=== PATIENT | female | born 1960 | race Caucasian/White ===

== ENCOUNTER → 2019-02-17 | Day surgery (SDC) | payer OTHER ==
[2019-02-15 13:48] LABS: BASOPHILS % 0.6 % (0.0-1.0); EOSINOPHILS # (AUTO) 0.1 (0.0-0.4); HEMATOCRIT 42.5 % (34.2-44.1); LYMPHOCYTES # (AUTO) 2.1 (1.0-3.2); LYMPHOCYTES % 29.6 % (18.0-39.1); MEAN CORPUSCULAR HEMOGLOBIN 28.5 pg (28-32); MEAN CORPUSCULAR HGB CONC 32.9 g/dL (31-35); MEAN CORPUSCULAR VOLUME 86.4 fL (81-99); MONOCYTES # (AUTO) 0.5 (0.2-0.8); MONOCYTES % 7.1 % (4.4-11.3); NEUTROPHILS # (AUTO) 4.2 (2.1-6.9); NEUTROPHILS % 60.6 % (38.7-80.0); PLATELET COUNT 208 x10e3/uL (140-360); RED BLOOD COUNT 4.92 x10e6/uL (3.6-5.1); RED CELL DISTRIBUTION WIDTH 13.7 % (11.7-14.4)
[2019-02-15 14:02] LABS: ANION GAP 15.2 mmol/L (8-16); BLOOD UREA NITROGEN 17 mg/dL (7-26); BUN/CREATININE RATIO 18 (6-25); CARBON DIOXIDE 28 mmol/L (22-29); CHLORIDE 103 mmol/L (98-107); CREATININE, SERUM 0.93 mg/dL (0.57-1.11); EST GLOMERULAR FILTRATION RATE > 60 ML/MIN (60-); GLUCOSE 88 mg/dL (74-118); POTASSIUM 4.2 mmol/L (3.5-5.1); SODIUM 142 mmol/L (136-145)
--- NOTE | 2019-02-15 14:17 | Diagnostic Imaging Report ---
EXAMINATION: CHEST 2 VIEWS INDICATION: Pre-operative COMPARISON: None FINDINGS: LINES/TUBES:None LUNGS:The lungs are well-inflated. No focal consolidation or pulmonary edema. PLEURA:No pleural effusion or pneumothorax. MEDIASTINUM:The cardiomediastinal silhouette appears normal in size and shape. BONES/SOFT TISSUES:No acute osseous injury. Cervical spine fusion hardware. ABDOMEN:No free air under the diaphragm. IMPRESSION: No focal pneumonia or pulmonary edema. Signed by: Gian Alexander MD on 02/15/2019 2:13 PM
[~2019-02-17] MED LIST: ACETAMINOPHEN 1000 MG/100 ML IV ONE; BUPIVACAINE HCL 0.5% INJ 30 ML VIAL INJ ONE; CEFAZOLIN SOD 1 GM/NS 50ML 100 ML IV ONE; DEXAMETHASONE SOD PHOS INJ 4 MG/ML VIAL ONE; FENTANYL CITRATE/PF 100MCG/2 ML INJ ONE; KETOROLAC TROMETHAMINE 30 MG/ML VIAL ONE; LIDOCAINE HCL 2% LOCAL INJ 5 ML SDV VIAL INJ ONE; MIDAZOLAM HCL 2 MG/2 ML VIAL ONE; MORPHINE SULFATE INJ 4 MG/ML INJ 1ML ONE; NEOSTIGMINE 1 MG/ML 10ML VIAL ONE; ONDANSETRON HCL INJ 2MG/ML 2ML 2 MG/ML VIAL ONE; PROPOFOL IV EMULSION 10 MG/ML 20 ML VIAL ONE; SEVOFLURANE INHAL SOLN 250 ML PEN BTL ONE
--- OUTSIDE RECORDS SUMMARY | 2019-02-17 08:53 | XMS REPORT | Clinical Summary ---
Author Author [facility] [employer] [facility] [employer] Address Unknown Phone Unavailable Care Team Providers Care Color Coater Name Role Phone Ioana Singletary MD PCP Allergies No Known Allergies Medications End Date Status Medication Sig Dispensed Refills Start Date Active fluticasone/salmeterol Inhale 1 puff 0 (ADVAIR DISKUS INHL) 2 (two) times a day. Active albuterol (PROAIR Inhale 2 0 HFA,PROVENTIL puffs every 6 HFA,VENTOLIN HFA) 90 (six) hours mcg/actuation inhaler as needed for wheezing. Active acetaminophen (TYLENOL) Take 650 mg 0 325 MG tablet by mouth every 6 (six) hours as needed for mild pain or moderate pain. Active amitriptyline HCl Take 1 tablet 0 (AMITRIPTYLINE ORAL) by mouth nightly. Active Problems Not on file Encounters Care Team Description Date Type Specialty Ori Abernathy MD Radiculopathy, cervical (Primary Dx) 05/04/2018 Transcribe Radiology Orders Ori Abernathy MD ANTERIOR CERVICAL DISCECTOMY AND FUSION W/ ALLOGRAFT, AUTOGRAFT CERVICAL 6 - CERVICAL 7 03/24/2018 Surgery General Surgery Jose M Muro MD Delaflor-Santaana, Miriam, NP 03/24/2018 Anesthesia General Surgery Event Ori Abernathy MD Degeneration of intervertebral disc at C6-C7 level; Herniation of intervertebral disc at C6-C7 level; Cervical spinal stenosis; Acute cervical radiculopathy 03/24/2018 Hospital General Surgery Encounter Ori Abernathy MD Pre-op testing (Primary Dx) 03/17/2018 Pre-Admit Pre-Admission Testing Testing Appointment after 02/16/2018 Social History Date Tobacco Use Types Packs/Day Years Used Never Smoker Smokeless Tobacco: Never Used Tobacco Cessation: Counseling Given: No Drinks/Week oz/Week Comments Alcohol Use occas social Yes Sex Assigned at Date Recorded Not on file Industry Job Start Date Occupation Not on file Not on file Not on file Travel End Travel History Travel Start No recent travel history available. Last Filed Vital Signs Reading Time Taken Comments Vital Sign 118/55 03/24/2018 10:01 AM CDT Blood Pressure 67 03/24/2018 10:01 AM CDT Pulse 36.2 C (97.2 F) 03/24/2018 10:01 AM CDT Temperature 15 03/24/2018 10:01 AM CDT Respiratory Rate 99% 03/24/2018 10:01 AM CDT Oxygen Saturation - - Inhaled Oxygen Concentration 108 kg (238 lb 3.2 oz) 03/24/2018 5:34 AM CDT Weight 165.1 cm (5' 5") 03/24/2018 5:34 AM CDT Height 39.64 03/24/2018 5:34 AM CDT Body Mass Index Plan of Treatment Health Maintenance Due Date Last Done Comments CERVICAL CANCER SCREENING 1983 BREAST CANCER SCREENING 2012 COLONOSCOPY SCREENING 2012 SHINGLES VACCINES (#1) 2012 INFLUENZA VACCINE 12/22/2018 03/17/2018 Implants Device Identifier Shelf Expiration Date Model / Serial / Lot Implanted Type Area Manufactur er 07/25/2022 [id number] / [id number] / LOT NA Bone Matriz Osteocel Pro Small - Human N/A: N/A NUVASIVE [id number] - [id number] Tissue Implanted: Qty: 1 on 03/24/2018 by Implants Ori Abernathy MD at [facility] 04/03/2022 [id number] / / Triad Cr Allograft [id number] - IPM Anterior: Spine NUVASIVE [id number] IMPLANT Cervical SPINE Implanted: Qty: 1 on 03/24/2018 by DEVICES Ori Abernathy MD at [facility] [id number] / / Plate Spinal Revltn 1lvl 20mm [place] Spinal N/A: N/A NUVASIVE Acp - [id number] Implants Implanted: Qty: 1 on 03/24/2018 by Ori Abernathy MD at [facility] [id number] / / Screw Spinal Favio Slf-Tap 4x13mm Spinal N/A: N/A NUVASIVE [place] Revolution Acp - [id number] Implants Implanted: Qty: 2 on 03/24/2018 by Ori Abernathy MD at [facility] [id number] / / Screw Spinal Fxd Slf-Tap 4x13mm Spinal N/A: N/A NUVASIVE [place] Revolution Acp - [id number] Implants Implanted: Qty: 2 on 03/24/2018 by Ori Abernathy MD at [facility] Device Identifier Shelf Expiration Date Model / Serial / Lot Explanted Type Area Manufactur er [id number] / / Distraction Pin- 12mm - [id number] IPM N/A: N/A NUVASIVE Implanted: 03/24/2018 (Quantity not IMPLANT SPINE on file) DEVICES Explanted: Qty: 2 on 03/24/2018 at [facility] Procedures Comments Procedure Name Priority Date/Time Associated Diagnosis XR CERVICAL SPINE AP Routine 05/04/2018 Radiculopathy, cervical LATERAL FLEXION AND 4:06 PM TIPPLE SUPERVISOR EXTENSION SURGICAL PATHOLOGY Routine 03/24/2018 REQUEST 1:24 PM CDT [place] AN ELECTIVE Routine 03/24/2018 ENDOTRACHEAL AIRWAY 9:44 AM CDT Procedure Note - Jose M Muro - 03/24/2018 9:44 AM CDT Airway Date/Time: 03/24/2018 7:11 AM Performed by: JOSE M MURO Authorized by: JOSE M MURO Location: OR Urgency: Elective Difficult Airway: No Anesthesio logist: JOSE M MURO Preoxygena belkis with 100% O2: Yes C-spine Precaution s Maintained Throughout : Yes Mask Ventilatio n: Easy mask Final Airway Type: Endotrache al airway Final Endotrache al Airway: ETT Cuffed: Yes Technique Used: Video laryngosco py Devices/Me thods Used in Placement: Intubatin g stylet Insertion Site: Oral Laryngosco pe Blade/Vide olaryngosc ope Blade Size: 3 (Glidescop e 3 ) ETT Size (mm): 7.0 Cuff at minimum occlusion pressure: Yes Measured from: Lips ETT to Lips (cm): 21 Placement Verified by: CO2 detection and direct visualizat ion Laryngosco pic view: Grade I - full view of glottis Rapid Sequence Induction (RSI): No Modified RSI: No Number of Attempts at Approach: 1 Elective glidescope use 2/2 cervical neck pain, limited range of motion of neck and radiculopa thy OR [place] < 1 HOUR Routine 03/24/2018 8:20 AM CDT DISCECTOMY, CERVICAL, 03/24/2018 Degeneration of WITH FUSION, ANTERIOR 7:02 AM CDT intervertebral disc at APPROACH C6-C7 level Herniation of intervertebral disc at C6-C7 level Cervical spinal stenosis Acute cervical radiculopathy Case Notes SUPINE POSITION, EST 1 HR, REGULAR BED-REVERS ED, C-ARM, DOUGHNUT HEADREST, HELIX-R ANTERIOR PLATE, PEEK SMALL CONTOURED, OSTEOCEL, POSSIBLE EXTENDED STAY Special Needs SUPINE POSITION, EST 1 HR, REGULAR BED-REVERS ED, C-ARM, DOUGHNUT HEADREST, HELIX-R ANTERIOR PLATE, PEEK SMALL CONTOURED, OSTEOCEL, POSSIBLE EXTENDED STAY ECG PRE/POST OP Routine 03/17/2018 Pre-op testing 12:09 PM CDT ESTIMATED GFR Routine 03/17/2018 11:59 AM CDT HEMOGLOBIN A1C Routine 03/17/2018 Pre-op testing 11:59 AM CDT BASIC METABOLIC PANEL Routine 03/17/2018 Pre-op testing 11:59 AM CDT HC COMPLETE BLD COUNT Routine 03/17/2018 Pre-op testing W/AUTO DIFF 11:59 AM CDT after 02/16/2018 Results * XR Cervical Spine Ap Lateral Flexion And Extension (05/04/2018 4:06 PM TIPPLE SUPERVISOR) Specimen Narrative Performed At EXAMINATION:XR CERVICAL SPINE AP LATERAL FLEXION AND EXTENSION HM RADIANT CLINICAL HISTORY:M54.12 Radiculopathycervical region, radiculopathy cervical COMPARISON:None. IMPRESSION: 5 views of the cervical spine were obtained. C6-7 anterior fusion with vertebral screws, surgical plate and disc graft without evidence of hardware loosening. Mild induced anterolisthesis at C3-4 and C4-5. Mild anterolisthesis at C5-6 stable on extension and flexion. No displaced fractures, aggressive bone lesions or prevertebral soft tissue swelling. Mild disc space narrowing and endplate degenerative changes at C4-5 and C5-6. [id number] Procedure Note Interface, Radiology Results Incoming - 05/04/2018 4:51 PM TIPPLE SUPERVISOR EXAMINATION: XR CERVICAL SPINE AP LATERAL FLEXION AND EXTENSION CLINICAL HISTORY: M54.12 Radiculopathy cervical region, radiculopathy cervical COMPARISON: None. IMPRESSION: 5 views of the cervical spine were obtained. C6-7 anterior fusion with vertebral screws, surgical plate and disc graft without evidence of hardware loosening. Mild induced anterolisthesis at C3-4 and C4-5. Mild anterolisthesis at C5-6 stable on extension and flexion. No displaced fractures, aggressive bone lesions or prevertebral soft tissue swelling. Mild disc space narrowing and endplate degenerative changes at C4-5 and C5-6. [id number] Performing Organization Address City/[facility]/[place] [address] * Surgical pathology request (03/24/2018 1:24 PM CDT) [facility] OF PATHOLOGY AND GENOMIC MEDICINE Surgical See link below for PDF Lab [facility] pathology Report OF PATHOLOGY report AND GENOMIC MEDICINE Result status This is Final Report for [facility] [id number] OF PATHOLOGY AND GENOMIC MEDICINE Specimen Performing Organization Address City/[facility] Phone Number [facility] DEPART[facility] OF [address] [place] [address] PATHOLOGY AND GENOMIC MEDICINE * OR [place] < 1 Hour (03/24/2018 8:20 AM CDT) Specimen Narrative Performed At IMPRESSION: C-arm fluoroscopy under one hour was provided in the OR for the [facility] referring physician. A radiologist was not present during the procedure. Refer to the Operative report issued by the performing provider for procedure details. Location: [facility] OR 11 Procedure: ANT CER FUSION Start: 729 End: 819 Fluoro Time: 1SEC mGy: 0.15 Tech: ALEX [id number] Procedure Note Interface, Radiology Results Incoming - 03/24/2018 1:22 PM CDT IMPRESSION: C-arm fluoroscopy under one hour was provided in the OR for the referring physician. A radiologist was not present during the procedure. Refer to the Operative report issued by the performing provider for procedure details. Location: [facility] OR 11 Procedure: ANT CER FUSION Start: 729 End: 819 Fluoro Time: 1SEC mGy: 0.15 Tech: ALEX [id number] Performing Organization Address [facility] Phone Number [facility] [address] [place] [address] * ECG Pre/Post Op (03/17/2018 12:09 PM CDT) [facility] Ventricular 69 [facility] MUSE rate Atrial rate 69 [facility] MUSE [place] interval 198 [facility] MUSE QRSD interval 78 [facility] MUSE QT interval 416 [facility] MUSE QTC interval 445 [facility] MUSE P axis 1 8 [facility] QRS axis 1 9 [facility] M[facility] T wave axis 29 [facility] EKG impression Normal sinus rhythm-Normal [facility] M[facility] ECG-No previous ECGs available- Specimen Performing Organization Address [facility] Phone Number [facility] [address] [place] [address] * Estimated GFR (03/17/2018 11:59 AM CDT) [facility] Estimated GFR >=90 mL/min/1.73 m2 [facility] Comment: OF PATHOLOGY CatergoryUnitsInte AND GENOMIC rpretation MEDICINE G1 >=90 Normal or high G2 60-89Mildly decreased D6l80-71 Mildly to moderately decreased L4z36-22 Moderately to severely decreased G4 15-29Severely decreased G5 <15Kidney failure The eGFR was calculated using the Chronic Kidney Disease Epidemiology Collaboration (CKD-EPI) equation. Interpretation is based on recommendations of the National Kidney Foundation-Kidney Disease Outcomes Quality Initiative (NKF-KDOQI) published in 2014. Specimen Plasma specimen Performing Organization Address [facility] Phone Number [address] [address] PATHOLOGY AND GENOMIC MEDICINE * CBC with platelet and differential (03/17/2018 11:59 AM CDT) [facility] WBC 6.91 4.50 - 11.00 k/uL [facility] DEPARTMENT OF PATHOLOGY AND GENOMIC MEDICINE RBC 4.62 4.20 - 5.50 m/uL [facility] DEPART[facility] OF PATHOLOGY AND GENOMIC MEDICINE HGB 13.8 12.0 - 16.0 g/dL [facility] DE[facility] OF PATHOLOGY AND GENOMIC MEDICINE HCT 42.3 37.0 - 47.0 % [facility] DEPART[facility] OF PATHOLOGY AND GENOMIC MEDICINE MCV 91.6 82.0 - 100.0 fL [facility] DEPART[facility] OF PATHOLOGY AND GENOMIC MEDICINE MCH 29.9 27.0 - 34.0 pg [facility] DEPART[facility] OF PATHOLOGY AND GENOMIC MEDICINE MCHC 32.6 31.0 - 37.0 g/dL [facility] DEPART[facility] OF PATHOLOGY AND GENOMIC MEDICINE RDW - SD 43.8 37.0 - 55.0 fL [facility] DEPARTMENT OF PATHOLOGY AND GENOMIC MEDICINE MPV 11.2 8.8 - 13.2 fL [facility] DE[facility] OF PATHOLOGY AND GENOMIC MEDICINE Platelet count 194 150 - 400 k/uL [facility] OF PATHOLOGY AND GENOMIC MEDICINE Nucleated RBC 0.00 /100 WBC [facility] DEPART[facility] OF PATHOLOGY AND GENOMIC MEDICINE Neutrophils 64.1 39.0 - 69.0 % [facility] DE[facility] OF PATHOLOGY AND GENOMIC MEDICINE Lymphocytes 26.6 25.0 - 45.0 % [facility] DE[facility] OF PATHOLOGY AND GENOMIC MEDICINE Monocytes 6.2 0.0 - 10.0 % [facility] OF PATHOLOGY AND GENOMIC MEDICINE Eosinophils 2.3 0.0 - 5.0 % [facility] DE[facility] OF PATHOLOGY AND GENOMIC MEDICINE Basophils 0.4 0.0 - 1.0 % [facility] OF PATHOLOGY AND GENOMIC MEDICINE Immature 0.4Comment: "Immature 0.0 - 1.0 % [facility] granulocytes granulocytes" (promyelocytes, OF PATHOLOGY myelocytes, metamyelocytes) AND GENOMIC MEDICINE Specimen Blood Performing Organization Address City/State/[place] [address] PATHOLOGY AND GENOMIC MEDICINE * Hemoglobin A1c (03/17/2018 11:59 AM CDT) Hemoglobin A1C 5.4 4.0 - 5.6 % [facility] Comment: OF PATHOLOGY HbA1c cutoffs for diagnosing AND GENOMIC diabetes: MEDICINE 4.0% - 5.6%=normal 5.7% - 6.4%=increased risk for diabetes (prediabetes) >=6.5%=diabetes Goals for glycemic control (ADA 2016) < 7.0%Target for non adults with diabetes. More or less stringent targets may be appropriate for individual patients. <7.5% Target for Children and adolescents with type 1 diabetes. Specimen Blood Performing Organization Address City/State/Zipcode Phone Number [facility] [place] [address] PATHOLOGY AND GENOMIC MEDICINE * Basic metabolic panel (03/17/2018 11:59 AM CDT) Sodium 141 135 - 148 mEq/L [facility] DEPART[facility] OF PATHOLOGY AND GENOMIC MEDICINE Potassium 3.8 3.5 - 5.0 mEq/L [facility] DE[facility] OF PATHOLOGY AND GENOMIC MEDICINE Chloride 101 98 - 112 mEq/L [facility] DE[facility] OF PATHOLOGY AND GENOMIC MEDICINE CO2 28 24 - 31 mEq/L [facility] DEPARTMENT OF PATHOLOGY AND GENOMIC MEDICINE Anion gap 12@ANIO 7 - 15 mEq/L [facility] DEPARTMENT OF PATHOLOGY AND GENOMIC MEDICINE BUN 19 6 - 20 mg/dL [facility] DE[facility] OF PATHOLOGY AND GENOMIC MEDICINE Creatinine 0.72 0.50 - 0.90 mg/dL [facility] DE[facility] OF PATHOLOGY AND GENOMIC MEDICINE Glucose 102 (H) 65 - 99 mg/dL [facility] DEPARTMENT OF PATHOLOGY AND GENOMIC MEDICINE Calcium 9.9 8.3 - 10.2 mg/dL [facility] DEPART[facility] OF PATHOLOGY AND GENOMIC MEDICINE Specimen Plasma specimen Performing Organization Address City/State/Zipcode Phone Number [place] [phone] PATHOLOGY AND GENOMIC MEDICINE after 02/16/2018 Insurance Type Payer Benefit Subscriber ID Effective Phone Address Plan / Dates Group PPO AETNA AETNA PPO xxxxxxxxxx [id number] OPEN resent CHOICE ([place]) [place] [address] Advance Directives For more information, please contact: [phone] Patient Crank Hand Explanation Type Date Recorded Advance Directives, Living Will and Medical Power of Forming Operator Advance Directives, 03/27/2018 12:46 PM Living Will and Medical Power of Forming Operator
--- OUTSIDE RECORDS SUMMARY | 2019-02-17 08:53 | XMS REPORT ---
Author Author [facility] Address Unknown Phone Unavailable Care Team Providers Care Eligibility Clerk Name Role Phone EMERSON MOREL Unavailable Unavailable Payers Payer Name Policy Type Policy Number Effective Date Expiration Date Problems This patient has no known problems. Allergies, Adverse Reactions, Alerts Allergy Name Allergy Type Status Severity Reaction(s) Onset Date Inactive Date Treating Clinician Comments No Known Drug Allergies DA Active U 2018-09-15 00:00:00 No Known Drug Allergies DA Active U 2018-07-29 00:00:00 No Known Drug Allergies DA Active U 2015-12-03 00:00:00 Medications This patient has no known medications. Results Test Description Test Time Test Comments Text Results Atomic Results Result Comments CHEST 2 VIEWS 2019-02-15 14:13:00 [facility] [address] [place] [address] Patient Name: SUDHA AL MR #: [id number] : 1960 Age/Sex: 58/F Req #: [id number] Adm Physician: Ordered by: EMERSON MOREL DPM Report #: [id number] Location: OR Room/Bed: Procedure: [id number] DX/CHEST 2 VIEWS Exam Date: 02/15/19 Exam Time: 1324 REPORT STATUS: Signed EXAMINATION: CHEST 2 VIEWS INDICATION: Pre-operative COMPARISON: None FINDINGS: LINES/TUBES:None LUNGS:The lungs are well-inflated. No focal consolidation or pulmonary edema. PLEURA:No pleural effusion or pneumothorax. MEDIASTINUM:The cardiomediastinal silhouette appears normal in size and shape. BONES/SOFT TISSUES:No acute osseous injury. Cervical spine fusion hardware. ABDOMEN:No free air under the diaphragm. IMPRESSION: No focal pneumonia or pulmonary edema. Signed by: Lázaro De La Garza MD on 02/15/2019 2:13 PM Dictated By: LÁZARO DE LA GARZA MD [id number] Transcribed By: KALYANI on 02/15/19 1413 COPY TO: EMERSON MOREL DPM
[2019-02-17 15:05] VITALS: BP 141/78
--- NOTE | 2019-02-18 22:58 | Operative Report ---
DATE OF PROCEDURE: 02/17/2019 SURGEON: Cody Paula DPM ROOM NUMBER: [facility]. PREOPERATIVE DIAGNOSES: 1. Ruptured anterior talofibular ligament of the right foot. 2. Nerve entrapment, right foot, sural nerve. 3. Lipoma, soft tissue mass, right foot. POSTOPERATIVE DIAGNOSES: 1. Ruptured anterior talofibular ligament of the right foot. 2. Nerve entrapment, right foot, sural nerve. 3. Lipoma, soft tissue mass, right foot. ANESTHESIA: General endotracheal. HEMOSTASIS: Right thigh tourniquet at 350 mmHg. TITLE OF OPERATIONS: 1. Repair of the anterior talofibular ligament of the right foot with removal of old sutures. 2. Neurolysis, sural nerve, right foot. 3. Excision of lipoma, soft tissue mass, lateral aspect of the right foot. PROCEDURE IN DETAIL: The patient was taken to the operating room in a mildly sedated state and placed on the operating table in supine position. Following induction of general anesthetic, the right lower extremity was elevated to 60 degrees to exsanguinate before inflating the pneumatic thigh tourniquet to 350 mmHg to create good hemostasis. Right lower extremity was placed on the operating table prior to performing the following procedure. Procedure #1: Repair of the anterior talofibular ligament of the right foot. An approximate 6 cm curvilinear incision was made overlying the anterior talofibular ligament and distal fibula. This incision was deepened via sharp and blunt dissection on the level of the large lipoma mass, which extended not only from that area to an area anterior to the ligament at the dorsum of the foot, but also posteriorly beyond the peroneal tendon insertion and course posterior to the lateral malleolus. This large lipoma was identified and dissected free from all surrounding constricting materials. There was an entrapment of the sural nerve within the lipoma itself, which was dissected free. Microscopic evaluation of the nerve was performed and the entirety of the sural nerve was freed. It was noted that there were several extensions that were sacrificed due to entanglement within the mass itself. However, most of the sural nerve did remain intact throughout the process of the procedure. This large lipoma having been removed, it was obvious that the lateral ankle stabilization previously performed was intact, but somewhat attenuated with time. The transverse incision through the previous repair revealed soft tissue structures that were mixture of attenuated and healthy tissue. The previously repaired ligament edges were resected and due to the fact that there was adequate ligament material remaining, a corkscrew Arthrex anchor was inserted, which allowed for a full FiberWire repair of the ligament itself. This having been accomplished, the area was irrigated with copious amounts of sterile saline solution. No further instability existed within the ankle itself. The repair was supplemented and plicated with human tissue allograft to ensure firm stability of the ankle after closure. Once this graft was secured in place, a TLS drain was installed in the void left by the lipoma excision and the nerve was retracted from harm's way for closure. Combination of 3-0 Vicryl and 4-0 nylon allowed for the area to be adequately sealed. The appropriate mildly compressive dressings were applied. A TLS drain was noted to be functional after release of the pneumatic thigh tourniquet. The patient left the operating room with vital signs stable in apparent satisfactory condition having tolerated both the anesthetic and procedure very well. CLAIRE Pina/NETO /[id number]
== END | disposition home or self-care (01) ==
LOC: OR 08:51
PROVIDERS: ATTEND Podiatrist Foot Surgery
DX: S93.491A Sprain of other ligament of right ankle, initial encounter (principal); D17.79 Benign lipomatous neoplasm of other sites; G47.33 Obstructive sleep apnea (adult) (pediatric); R00.1 Bradycardia, unspecified; E66.01 Morbid (severe) obesity due to excess calories; J45.909 Unspecified asthma, uncomplicated; X58.XXXA Exposure to other specified factors, initial encounter; S94.8X1A Injury of other nerves at ankle and foot level, right leg, initial encounter; Z01.810 Encounter for preprocedural cardiovascular examination; Z01.812 Encounter for preprocedural laboratory examination; Z01.818 Encounter for other preprocedural examination
CPT/HCPCS: 27695; 28039; 36415; 64704; 64727; 71046; 76000; 80048; 85025; 88304; 93005; C1713; J0131; J0690; J1100; J1885; J2001; J2250; J2270; J2405; J2704; J2710; J3010; V2790